=== PATIENT | male | born 1945 | race Caucasian/White ===

== ENCOUNTER 2021-07-25 10:04 | Inpatient (IN) | payer MEDICARE, MEDICAID ==
[2021-07-25 11:02] LABS: Bilirubin Negative (Negative); Blood, Urine Negative (Negative); Clarity Clear (Clear); Glucose, Urine (Dipstick) Normal (Negative); Ketone, Urine Negative (Negative); Leukocyte Negative Leu/uL (Negative); Nitrite Negative (Negative); Protein, Urine (Dipstick) 20 mg/dL (Neg-Trace); Specific Gravity, Urine 1.021 (1.002-1.036); Urobilinogen Normal mg/dL (Less than 2)
[2021-07-25 11:12] LABS: #Eosinphils 0.3 thou/uL (0.0-0.7); #Lymphocytes 1.7 thou/uL (1.20-3.40); #Monocytes 0.7 thou/uL (0.11-0.59); #Neutrophils 7.1 thou/uL (1.40-6.50); %Basophils 0.2 % (0.0-1.0); %Eosinophils 3.4 % (0.0-10.0); %Lymphocytes 17.1 % (21.0-51.0); %Monocytes 6.9 % (0.0-10.0); %Neutrophils 72.4 % (42.0-75.0); Hemoglobin 12.6 g/dL (14.0-18.0); Mean Corpuscular HGB CONC 32.4 g/dL (32.0-36.0); Mean Corpuscular Hemoglobin 29.4 pg (27.0-31.0); Mean Corpuscular Volume 90.6 fL (78.0-98.0); Mean Platelet Volume 8.8 fL (7.4-10.4); Platelet Count 230 thou/uL (130-400); RBC Distribution Width 13.4 % (11.5-14.5); Red Blood Cell (RBC) Count 4.28 mill/uL (4.70-6.10); White Blood Cell (WBC) Count 9.7 thou/uL (4.8-10.8)
[2021-07-25 11:18] LABS: Amphetamine Not Detected (NotDetected); Barbiturates Screen Not Detected (NotDetected); Benzodiazepine Screen Not Detected (NotDetected); Cocaine Metabolite Screen Not Detected (NotDetected); Methadone Not Detected (NotDetected); Methamphetamine Not Detected (NotDetected); Opiate Screen Not Detected (NotDetected); Oxycodone Screen Not Detected (NotDetected); Phencyclidine (PCP) Not Detected (NotDetected); THC/Cannabinoid Screen Not Detected (NotDetected); Tricyclic Screen Not Detected (NotDetected)
[2021-07-25 11:26] LABS: Acetaminophen Less than 6.0 mcg/mL (10.0-30.0); Alcohol Less than 10 mg/dL (Less than 10); Lipase 80 U/L (8-78); Salicylate Less than 8.0 mg/dL (15.0-30.0)
[2021-07-25 11:31] LABS: ALT (SGPT) 25 U/L (8-55); AST (SGOT) 25 U/L (5-34); Albumin 3.6 g/dL (3.4-4.8); Alkaline Phosphatase 136 U/L (40-110); Anion Gap 13 mmol/L (10-20); BUN (Urea Nitrogen) 20 mg/dL (8.4-25.7); Bilirubin, Total 0.2 mg/dL (0.2-1.2); CK (CPK) 109 U/L (30-200); Calc. Creatinine Clearance 0 mL/min (70-130); Carbon Dioxide 22 mmol/L (23-31); Chloride 106 mmol/L (98-107); Globulin 3.2 g/dL (2.4-3.5); Glucose 87 mg/dL (83-110); Potassium 4.3 mmol/L (3.5-5.1); Protein, Total 6.8 g/dL (5.8-8.1); Sodium 137 mmol/L (136-145)
[2021-07-25] MEDS ORDERED: Ondansetron PF 4 MG/2 ML Vial IVP PRN (12:58)
[2021-07-25] MEDS ORDERED: Acetaminophen 325 MG TAB PO PRN (12:58)
[2021-07-25] MEDS ORDERED: Enoxaparin Sodium 40 MG/0.4 ML SYRINGE SC SCH (13:00)
[2021-07-25] MEDS ORDERED: levETIRAcetam in NS 100 ML ONE (13:06)
[2021-07-25 13:21] LABS: SARS-CoV-2 NAA Rapid Test Not Detected (NotDetected)
[2021-07-25 14:32] VITALS: BMI 22.6
[2021-07-25] MEDS: Lactated Ringer's 1,000 ML IV SCH (16:25)
[2021-07-25] MEDS: levETIRAcetam in NS 1,000 MG in Premix Bag 1 BAG IVPB SCH (20:44)
[2021-07-25] MEDS ORDERED: levETIRAcetam in NS 500 MG in Premix Bag 1 BAG IVPB SCH (21:00)
[2021-07-26] MEDS: Lactated Ringer's 1,000 ML IV SCH ×2 (05:08→18:42)
[2021-07-26] MEDS: Enoxaparin Sodium 40 MG/0.4 ML SYRINGE SC SCH (09:28)
[2021-07-26] MEDS: levETIRAcetam in NS 1,000 MG in Premix Bag 1 BAG IVPB SCH ×2 (09:29→22:08)
[2021-07-26 09:54] LABS: #Eosinphils 0.4 thou/uL (0.0-0.7); #Lymphocytes 2.6 thou/uL (1.20-3.40); #Monocytes 0.6 thou/uL (0.11-0.59); #Neutrophils 5.2 thou/uL (1.40-6.50); %Basophils 0.5 % (0.0-1.0); %Lymphocytes 29.4 % (21.0-51.0); %Monocytes 6.7 % (0.0-10.0); %Neutrophils 59.4 % (42.0-75.0); Hemoglobin 12.1 g/dL (14.0-18.0); Mean Corpuscular HGB CONC 32.4 g/dL (32.0-36.0); Mean Corpuscular Hemoglobin 29.3 pg (27.0-31.0); Mean Corpuscular Volume 90.4 fL (78.0-98.0); Mean Platelet Volume 8.6 fL (7.4-10.4); Platelet Count 210 thou/uL (130-400); RBC Distribution Width 13.3 % (11.5-14.5); Red Blood Cell (RBC) Count 4.13 mill/uL (4.70-6.10); White Blood Cell (WBC) Count 8.7 thou/uL (4.8-10.8)
[2021-07-26 10:12] LABS: Anion Gap 12 mmol/L (10-20); BUN (Urea Nitrogen) 13 mg/dL (8.4-25.7); Calc. Creatinine Clearance 75 mL/min (70-130); Calcium 8.6 mg/dL (7.8-10.44); Carbon Dioxide 23 mmol/L (23-31); Chloride 107 mmol/L (98-107); Glucose 74 mg/dL (83-110); Potassium 4.1 mmol/L (3.5-5.1); Sodium 138 mmol/L (136-145)
[2021-07-26] MEDS: Lorazepam 2 MG/ML VIAL SLOW IVP PRN (14:14)
[2021-07-27] MEDS: Lorazepam 2 MG/ML VIAL SLOW IVP PRN (04:18)
[2021-07-27] MEDS: Lactated Ringer's 1,000 ML IV SCH (05:15)
[2021-07-27] MEDS: Enoxaparin Sodium 40 MG/0.4 ML SYRINGE SC SCH (08:28)
[2021-07-27] MEDS: levETIRAcetam in NS 1,000 MG in Premix Bag 1 BAG IVPB SCH (08:29)
[2021-07-27] MEDS ORDERED: hydrOXYzine 25 MG TAB PO PRN (09:12)
[2021-07-27] MEDS: levETIRAcetam 500 MG TAB PO SCH (09:58)
[2021-07-27] MEDS: Lisinopril 10 MG TAB PO SCH (11:30)
[2021-07-27] MEDS: Multivitamin W/ Minerals 1 TAB PO SCH (11:30)
[2021-07-27] MEDS ORDERED: Cosyntropin 250 MCG VIAL SLOW IVP SCH (15:15)
[2021-07-27] MEDS: Dextrose 5%-Lactated Ringers 1,000 ML IV SCH (17:07)
[2021-07-27] MEDS: Hydrocortisone Sod Succ/PF 100 mg/2 ml Vial IVP SCH (17:10)
[2021-07-27] MEDS ORDERED: traZODone HCl 50 MG TAB PO SCH (21:00)
[2021-07-27] MEDS ORDERED: OLANZapine 5 MG TAB PO SCH (21:00)
[2021-07-28] MEDS: Hydrocortisone Sod Succ/PF 100 mg/2 ml Vial IVP SCH ×4 (01:25→17:32)
[2021-07-28] MEDS: Dextrose 5%-Lactated Ringers 1,000 ML IV SCH ×2 (06:37→10:15)
[2021-07-28] MEDS: Multivitamin W/ Minerals 1 TAB PO SCH (08:29)
[2021-07-28] MEDS: Lisinopril 10 MG TAB PO SCH (08:29)
[2021-07-28] MEDS: Enoxaparin Sodium 40 MG/0.4 ML SYRINGE SC SCH (08:29)
[2021-07-28] MEDS ORDERED: Vancomycin 1 GM in Premix Bag 1 BAG IVPB SCH (09:00)
[2021-07-28] MEDS ORDERED: Vancomycin HCl 1 GM in Sodium Chloride 0.9% 250 ML 250 ML IVPB SCH (09:00)
[2021-07-28 09:20] LABS: #Lymphocytes 1.5 thou/uL (1.20-3.40); #Monocytes 0.1 thou/uL (0.11-0.59); #Neutrophils 5.4 thou/uL (1.40-6.50); %Basophils 0.5 % (0.0-1.0); %Eosinophils 0.2 % (0.0-10.0); %Lymphocytes 21.1 % (21.0-51.0); %Monocytes 1.9 % (0.0-10.0); %Neutrophils 76.3 % (42.0-75.0); Hemoglobin 12.6 g/dL (14.0-18.0); Mean Corpuscular Hemoglobin 29.4 pg (27.0-31.0); Mean Corpuscular Volume 89.2 fL (78.0-98.0); Mean Platelet Volume 8.7 fL (7.4-10.4); Platelet Count 240 thou/uL (130-400); RBC Distribution Width 13.3 % (11.5-14.5); Red Blood Cell (RBC) Count 4.28 mill/uL (4.70-6.10); White Blood Cell (WBC) Count 7.1 thou/uL (4.8-10.8)
[2021-07-28] MEDS ORDERED: VANCOMYCIN 1.25 GM/250 ML BAG 1.25 GM in Premix Bag 1 BAG IVPB SCH (10:00)
[2021-07-28] MEDS: Cefepime 1 GM in Sodium Chloride 0.9% 100 ML IVPB SCH ×2 (10:15→21:53)
[2021-07-28] MEDS: Vancomycin HCl 1.25 GM in Sodium Chloride 0.9% 250 ML 250 ML IVPB SCH (11:30)
[2021-07-28] MEDS: Lorazepam 2 MG/ML VIAL SLOW IVP PRN (14:41)
[2021-07-28] MEDS: levETIRAcetam 500 MG TAB PO SCH (21:53)
[2021-07-29] MEDS: Hydrocortisone Sod Succ/PF 100 mg/2 ml Vial IVP SCH ×3 (00:03→11:31)
[2021-07-29] MEDS: Dextrose 5%-Lactated Ringers 1,000 ML IV SCH (06:14)
[2021-07-29] MEDS: Lisinopril 10 MG TAB PO SCH (08:58)
[2021-07-29] MEDS: Enoxaparin Sodium 40 MG/0.4 ML SYRINGE SC SCH (08:59)
[2021-07-29] MEDS: levETIRAcetam 500 MG TAB PO SCH ×2 (08:59→21:24)
[2021-07-29] MEDS: Multivitamin W/ Minerals 1 TAB PO SCH (08:59)
[2021-07-29] MEDS: Cefepime 1 GM in Sodium Chloride 0.9% 100 ML IVPB SCH ×2 (09:00→21:25)
[2021-07-29] MEDS: Vancomycin HCl 1.25 GM in Sodium Chloride 0.9% 250 ML 250 ML IVPB SCH (11:31)
[2021-07-29 13:17] LABS: Calc. Creatinine Clearance 80 mL/min (70-130)
[2021-07-29] MEDS: Lorazepam 2 MG/ML VIAL SLOW IVP PRN (13:48)
[2021-07-30] MEDS: Dextrose 5%-Lactated Ringers 1,000 ML IV SCH (03:54)
[2021-07-30 05:10] LABS: #Eosinphils 0.2 thou/uL (0.0-0.7); #Monocytes 0.7 thou/uL (0.11-0.59); #Neutrophils 4.1 thou/uL (1.40-6.50); %Basophils 0.5 % (0.0-1.0); %Eosinophils 2.3 % (0.0-10.0); %Lymphocytes 37.2 % (21.0-51.0); %Monocytes 8.9 % (0.0-10.0); %Neutrophils 51.1 % (42.0-75.0); Hemoglobin 12.3 g/dL (14.0-18.0); Mean Corpuscular HGB CONC 32.1 g/dL (32.0-36.0); Mean Corpuscular Hemoglobin 28.9 pg (27.0-31.0); Mean Corpuscular Volume 89.9 fL (78.0-98.0); Mean Platelet Volume 8.4 fL (7.4-10.4); Platelet Count 199 thou/uL (130-400); RBC Distribution Width 13.2 % (11.5-14.5); Red Blood Cell (RBC) Count 4.25 mill/uL (4.70-6.10); White Blood Cell (WBC) Count 8.1 thou/uL (4.8-10.8)
[2021-07-30 05:28] LABS: Anion Gap 9 mmol/L (10-20); BUN (Urea Nitrogen) 13 mg/dL (8.4-25.7); Calc. Creatinine Clearance 86 mL/min (70-130); Calcium 8.6 mg/dL (7.8-10.44); Carbon Dioxide 28 mmol/L (23-31); Chloride 105 mmol/L (98-107); Glucose 85 mg/dL (83-110); Magnesium 1.8 mg/dL (1.6-2.6); Potassium 3.1 mmol/L (3.5-5.1); Sodium 139 mmol/L (136-145)
[2021-07-30] MEDS ORDERED: Electrolyte Replacement Protocol FS PRN (06:30)
[2021-07-30] MEDS ORDERED: Potassium Chloride 20 MEQ TAB PO SCH (07:00)
[2021-07-30] MEDS ORDERED: Magnesium 2 GM/50 ML 2 GM in Premix Bag 1 BAG IVPB SCH (08:00)
[2021-07-30] MEDS: Enoxaparin Sodium 40 MG/0.4 ML SYRINGE SC SCH (08:39)
[2021-07-30] MEDS: levETIRAcetam 500 MG TAB PO SCH ×2 (08:39→21:50)
[2021-07-30] MEDS: Multivitamin W/ Minerals 1 TAB PO SCH (08:40)
[2021-07-30] MEDS: Lisinopril 10 MG TAB PO SCH (08:40)
[2021-07-30] MEDS: Cefepime 1 GM in Sodium Chloride 0.9% 100 ML IVPB SCH ×2 (11:22→21:50)
[2021-07-31] MEDS: Enoxaparin Sodium 40 MG/0.4 ML SYRINGE SC SCH (08:52)
[2021-07-31] MEDS: Dextrose 5%-Lactated Ringers 1,000 ML IV SCH ×2 (08:52→16:37)
[2021-07-31] MEDS: Lisinopril 10 MG TAB PO SCH (08:53)
[2021-07-31] MEDS: levETIRAcetam 500 MG TAB PO SCH ×2 (08:53→21:17)
[2021-07-31] MEDS: Multivitamin W/ Minerals 1 TAB PO SCH (08:53)
[2021-07-31] MEDS: Cefepime 1 GM in Sodium Chloride 0.9% 100 ML IVPB SCH ×2 (08:56→21:17)
[2021-07-31 11:05] LABS: Anion Gap 10 mmol/L (10-20); BUN (Urea Nitrogen) 17 mg/dL (8.4-25.7); Calc. Creatinine Clearance 56 mL/min (70-130); Calcium 8.6 mg/dL (7.8-10.44); Carbon Dioxide 27 mmol/L (23-31); Chloride 108 mmol/L (98-107); Glucose 126 mg/dL (83-110); Potassium 3.6 mmol/L (3.5-5.1); Sodium 141 mmol/L (136-145)
[2021-07-31 23:55] LABS: SARS-CoV-2 PCR by NAA Not Detected (NotDetected)
[2021-08-01 06:27] LABS: Calc. Creatinine Clearance 74 mL/min (70-130)
[2021-08-01] MEDS: Multivitamin W/ Minerals 1 TAB PO SCH (09:01)
[2021-08-01] MEDS: Enoxaparin Sodium 40 MG/0.4 ML SYRINGE SC SCH (09:01)
[2021-08-01] MEDS: Cefepime 1 GM in Sodium Chloride 0.9% 100 ML IVPB SCH ×2 (09:01→21:47)
[2021-08-01] MEDS: levETIRAcetam 500 MG TAB PO SCH ×2 (09:01→21:34)
[2021-08-01] MEDS: Lisinopril 10 MG TAB PO SCH (09:01)
[2021-08-01 11:38] LABS: Anion Gap 10 mmol/L (10-20); BUN (Urea Nitrogen) 15 mg/dL (8.4-25.7); Calc. Creatinine Clearance 74 mL/min (70-130); Calcium 8.4 mg/dL (7.8-10.44); Carbon Dioxide 27 mmol/L (23-31); Chloride 108 mmol/L (98-107); Glucose 98 mg/dL (83-110); Potassium 3.6 mmol/L (3.5-5.1); Sodium 141 mmol/L (136-145)
[2021-08-01] MEDS: hydrALAZINE 20 MG/ML VIAL SLOW IVP PRN (16:32)
[2021-08-01] MEDS: Dextrose 5%-Lactated Ringers 1,000 ML IV SCH (16:35)
[2021-08-02 05:21] LABS: #Eosinphils 0.3 thou/uL (0.0-0.7); #Lymphocytes 2.2 thou/uL (1.20-3.40); #Monocytes 0.8 thou/uL (0.11-0.59); #Neutrophils 7.4 thou/uL (1.40-6.50); %Basophils 0.3 % (0.0-1.0); %Eosinophils 2.9 % (0.0-10.0); %Lymphocytes 20.3 % (21.0-51.0); %Monocytes 7.3 % (0.0-10.0); %Neutrophils 69.4 % (42.0-75.0); Hemoglobin 12.3 g/dL (14.0-18.0); Mean Corpuscular HGB CONC 31.4 g/dL (32.0-36.0); Mean Corpuscular Hemoglobin 29.1 pg (27.0-31.0); Mean Corpuscular Volume 92.6 fL (78.0-98.0); Platelet Count 186 thou/uL (130-400); RBC Distribution Width 13.7 % (11.5-14.5); Red Blood Cell (RBC) Count 4.22 mill/uL (4.70-6.10); White Blood Cell (WBC) Count 10.7 thou/uL (4.8-10.8)
[2021-08-02 05:30] LABS: Calc. Creatinine Clearance 82 mL/min (70-130)
[2021-08-02] MEDS: Multivitamin W/ Minerals 1 TAB PO SCH (08:22)
[2021-08-02] MEDS: Enoxaparin Sodium 40 MG/0.4 ML SYRINGE SC SCH (08:22)
[2021-08-02] MEDS: Lisinopril 10 MG TAB PO SCH (08:22)
[2021-08-02] MEDS: levETIRAcetam 500 MG TAB PO SCH ×2 (08:22→21:07)
[2021-08-02] MEDS: Cefepime 1 GM in Sodium Chloride 0.9% 100 ML IVPB SCH ×2 (09:51→21:06)
[2021-08-02] MEDS: Dextrose 5%-Lactated Ringers 1,000 ML IV SCH (11:58)
[2021-08-02] MEDS: hydrALAZINE 20 MG/ML VIAL SLOW IVP PRN (11:59)
[2021-08-03 04:47] LABS: Calc. Creatinine Clearance 88 mL/min (70-130)
[2021-08-03] MEDS: Enoxaparin Sodium 40 MG/0.4 ML SYRINGE SC SCH (08:17)
[2021-08-03] MEDS: Cefepime 1 GM in Sodium Chloride 0.9% 100 ML IVPB SCH ×3 (09:00→21:50)
[2021-08-03] MEDS: Dextrose 5%-Lactated Ringers 1,000 ML IV SCH (09:00)
[2021-08-03] MEDS: levETIRAcetam 500 MG TAB PO SCH ×3 (11:13→21:49)
[2021-08-03] MEDS: Lisinopril 10 MG TAB PO SCH ×2 (11:14→14:15)
[2021-08-03] MEDS: Multivitamin W/ Minerals 1 TAB PO SCH (11:14)
[2021-08-04 06:11] LABS: Calc. Creatinine Clearance 86 mL/min (70-130)
[2021-08-04] MEDS: Cefepime 1 GM in Sodium Chloride 0.9% 100 ML IVPB SCH (09:10)
[2021-08-04] MEDS: Lisinopril 10 MG TAB PO SCH (09:10)
[2021-08-04] MEDS: Enoxaparin Sodium 40 MG/0.4 ML SYRINGE SC SCH (09:10)
[2021-08-04] MEDS: levETIRAcetam 500 MG TAB PO SCH ×2 (09:10→21:10)
[2021-08-04] MEDS: Multivitamin W/ Minerals 1 TAB PO SCH (09:10)
[2021-08-04] MEDS: Dextrose 5%-Lactated Ringers 1,000 ML IV SCH (09:11)
[2021-08-04 16:42] LABS: Anion Gap 11 mmol/L (10-20); BUN (Urea Nitrogen) 10 mg/dL (8.4-25.7); Calc. Creatinine Clearance 83 mL/min (70-130); Calcium 8.3 mg/dL (7.8-10.44); Carbon Dioxide 27 mmol/L (23-31); Chloride 106 mmol/L (98-107); Glucose 100 mg/dL (83-110); Potassium 3.7 mmol/L (3.5-5.1); Sodium 140 mmol/L (136-145)
[2021-08-05 04:59] LABS: #Eosinphils 0.6 thou/uL (0.0-0.7); #Lymphocytes 2.3 thou/uL (1.20-3.40); #Monocytes 0.7 thou/uL (0.11-0.59); #Neutrophils 3.9 thou/uL (1.40-6.50); %Basophils 0.1 % (0.0-1.0); %Eosinophils 8.1 % (0.0-10.0); %Lymphocytes 30.1 % (21.0-51.0); %Monocytes 9.4 % (0.0-10.0); %Neutrophils 52.3 % (42.0-75.0); Hemoglobin 11.6 g/dL (14.0-18.0); Mean Corpuscular HGB CONC 32.1 g/dL (32.0-36.0); Mean Corpuscular Hemoglobin 29.7 pg (27.0-31.0); Mean Corpuscular Volume 92.4 fL (78.0-98.0); Mean Platelet Volume 8.8 fL (7.4-10.4); Platelet Count 191 thou/uL (130-400); RBC Distribution Width 13.6 % (11.5-14.5); Red Blood Cell (RBC) Count 3.91 mill/uL (4.70-6.10); White Blood Cell (WBC) Count 7.5 thou/uL (4.8-10.8)
[2021-08-05 05:23] LABS: Calc. Creatinine Clearance 90 mL/min (70-130)
[2021-08-05] MEDS: Dextrose 5%-Lactated Ringers 1,000 ML IV SCH (07:59)
[2021-08-05] MEDS: Enoxaparin Sodium 40 MG/0.4 ML SYRINGE SC SCH (10:23)
[2021-08-05] MEDS: Lisinopril 10 MG TAB PO SCH (10:24)
[2021-08-05] MEDS: levETIRAcetam 500 MG TAB PO SCH (10:24)
[2021-08-05] MEDS: Multivitamin W/ Minerals 1 TAB PO SCH (10:24)
[2021-08-05 11:58] VITALS: BP 140/64; TEMP 98.1
== END 2021-08-05 16:10 | DRG 100 ==
LOC: ERS 10:04 → NEURO 12:59
PROVIDERS: ADMIT Internal Medicine; ATTEND Internal Medicine
DX: G40.409 Other generalized epilepsy and epileptic syndromes, not intractable, without status epilepticus (principal); G93.41 Metabolic encephalopathy; Z20.822 Contact with and (suspected) exposure to COVID-19; F03.90 Unspecified dementia, unspecified severity, without behavioral disturbance, psychotic disturbance, mood disturbance, and anxiety; I10 Essential (primary) hypertension; G47.00 Insomnia, unspecified; E03.9 Hypothyroidism, unspecified; F41.9 Anxiety disorder, unspecified; F32.9 Major depressive disorder, single episode, unspecified; R68.0 Hypothermia, not associated with low environmental temperature; D64.9 Anemia, unspecified; R00.1 Bradycardia, unspecified; E87.6 Hypokalemia; Z79.899 Other long term (current) drug therapy
CPT/HCPCS: 36415; 36416; 51701; 70450; 70551; 71045; 72125; 80048; 80053; 80306; 80307; 80400; 81003; 82140; 82550; 82565; 83605; 83690; 83735; 83880; 84145; 84146; 84443; 84484; 85025; 87040; 87077; 87086; 87149; 93005; 93010; 94760; 95712; 95819; 95957; 96374; J0360; J0692; J0834; J1650; J1720; J1953; J2060; J3370; J3475; J3490; J7050; J7120; U0002; U0003; U0005